=== PATIENT | female | born 1975 | race African-American/Black ===

== ENCOUNTER 2021-10-29 11:59 | Emergency (ER) | payer BC ==
[~2021-10-29] VITALS: Ht 170.2 cm; Wt 100.0 kg
[2021-10-29] MEDS ORDERED: AM250 PO (12:20)
[2021-10-29] MEDS ORDERED: IBUPROFEN 800MG TABLET PO ONE (13:00)
[2021-10-29] MEDS ORDERED: DIAZEPAM 5 MG TABLET PO ONE (13:00)
[2021-10-29 13:38] VITALS: BP 165/87
[2021-10-29] MEDS ORDERED: DIAZEPAM 5 MG TABLET PO NR (15:15)
[2021-10-29] MEDS ORDERED: METH-773 MT (16:10)
[2021-10-29] MEDS ORDERED: IBUP-2030 MT (16:10)
== END 2021-10-29 16:51 | disposition home or self-care (01) ==
LOC: ER 11:59
DX: M54.2 Cervicalgia (principal); M54.6 Pain in thoracic spine; M54.9 Dorsalgia, unspecified; M54.50 Low back pain, unspecified; M79.605 Pain in left leg; M79.604 Pain in right leg; S53.195A Other dislocation of left ulnohumeral joint, initial encounter; V43.52XA Car driver injured in collision with other type car in traffic accident, initial encounter; Y93.89 Activity, other specified; Y92.488 Other paved roadways as the place of occurrence of the external cause
CPT/HCPCS: 29105; 72070; 72100; 73080; 99284; A4565